=== PATIENT | male | born 1990 | race African-American/Black ===

== ENCOUNTER 2017-01-24 19:35 | Emergency (ER) | payer OTHER ==
[2017-01-24] MEDS ORDERED: AMOXICILLIN TRIHYDRATE 250 MG CAPSULE ONE (21:12)
== END 2017-01-24 21:26 | disposition home or self-care (01) ==
LOC: ED 19:35
DX: S01.412A Laceration without foreign body of left cheek and temporomandibular area, initial encounter (principal); S01.511A Laceration without foreign body of lip, initial encounter; X58.XXXA Exposure to other specified factors, initial encounter; Y93.61 Activity, american tackle football; Y92.321 Football field as the place of occurrence of the external cause
CPT/HCPCS: 99283 ×2; 13132 ×2; 12011 ×2; A9270